=== PATIENT | female | born 1990 | race African-American/Black ===

== ENCOUNTER 2025-05-05 11:46 | Emergency (ER) | payer MEDICARE ==
[~2025-05-05] VITALS: Ht 165.1 cm; Wt 80.8 kg
[2025-05-05 11:50] VITALS: PULSE 105; RESP 16; TEMP 99; O2SAT 98
[2025-05-05] MEDS ORDERED: HYDROMORPHONE 1MG/1ML INJ IV STA (12:33)
[2025-05-05] MEDS: Morphine 4mg INJECTION 4 MG/ML INJ IV ONE ×2 (13:07→14:02)
[2025-05-05] MEDS: ONDANSETRON HCL INJ 2MG/ML 2ML 2 MG/ML VIAL IV STA (13:07)
== END 2025-05-05 14:40 | disposition home or self-care (01) ==
LOC: FSED 11:51
DX: M54.50 Low back pain, unspecified (principal); N20.0 Calculus of kidney; I10 Essential (primary) hypertension; F17.210 Nicotine dependence, cigarettes, uncomplicated
CPT/HCPCS: 74176; 80053; 81003; 81025; 85025; 99283; J1171; J2270; J2405

== ENCOUNTER 2025-05-08 13:17 | Emergency (ER) | payer MEDICARE ==
[2025-05-08] MEDS: ONDANSETRON HCL 4 MG ORAL DISINTEGRATING TAB PO ONE (13:56)
[2025-05-08] MEDS: Morphine 4mg INJECTION 4 MG/ML INJ IM ONE (13:59)
[2025-05-08 15:08] VITALS: PULSE 76; RESP 20; TEMP 98.9; O2SAT 100
[2025-05-08] MEDS ORDERED: ULTRAM 50MG50 MG PO (15:10)
[2025-05-08] MEDS ORDERED: FLOMAX0.4 MG PO (15:11)
[2025-05-08] MEDS ORDERED: ONDANSETRON ODT4 MG PO (15:12)
== END 2025-05-08 15:17 | disposition home or self-care (01) ==
LOC: FSED 13:33
DX: R31.9 Hematuria, unspecified (principal); N20.0 Calculus of kidney; M54.50 Low back pain, unspecified; R10.9 Unspecified abdominal pain; I10 Essential (primary) hypertension
CPT/HCPCS: 81003; 99284; J2270; Q0162

== ENCOUNTER 2025-06-12 19:48 | Emergency (ER) | payer MEDICARE ==
[~2025-06-12] VITALS: Ht 162.6 cm; Wt 77.6 kg
[~2025-06-12 19:48] MED LIST: FLOMAX0.4 MG PO; ONDANSETRON ODT4 MG PO; ULTRAM 50MG50 MG PO
[2025-06-12] MEDS ORDERED: TYLENOL325 MG PO (20:42)
[2025-06-12] MEDS ORDERED: IBUPROFEN600 MG PO (20:42)
[2025-06-12] MEDS: ACETAMINOPHEN 325 MG TAB PO ONE (21:53)
[2025-06-12 22:48] VITALS: PULSE 95; RESP 15; TEMP 98.9
[2025-06-12 22:50] VITALS: BP 137/86; PULSE 95; RESP 15; TEMP 99; O2SAT 99
== END 2025-06-12 22:54 | disposition home or self-care (01) ==
LOC: FSED 20:16
DX: S00.83XA Contusion of other part of head, initial encounter (principal); S60.222A Contusion of left hand, initial encounter; S60.221A Contusion of right hand, initial encounter; R51.9 Headache, unspecified; Y04.0XXA Assault by unarmed brawl or fight, initial encounter; Y92.89 Other specified places as the place of occurrence of the external cause; I10 Essential (primary) hypertension; J45.909 Unspecified asthma, uncomplicated; F17.210 Nicotine dependence, cigarettes, uncomplicated
CPT/HCPCS: 70450; 72125; 81025; 99284

== ENCOUNTER 2025-06-13 18:31 | Observation (INO) | payer MEDICARE, OTHER ==
[~2025-06-13] VITALS: Ht 162.6 cm; Wt 77.6 kg
[~2025-06-13 18:31] MED LIST changes: +IBUPROFEN600 MG PO; +TYLENOL325 MG PO
[2025-06-13 19:00] VITALS: RESP 16; TEMP 98.8
[2025-06-13] MEDS ORDERED: SODIUM CHLORIDE 0.9% 1000ML 1,000 ML IV STA (19:38)
[2025-06-13 20:00] VITALS: BP 135/95; PULSE 85; TEMP 97.5; O2SAT 100
[2025-06-13 20:43] LABS: PREGNANCY TEST, URINE NEGATIVE (NEGATIVE)
[2025-06-13 20:45] LABS: AMPHETAMINES SCREEN,URINE POSITIVE (NEGATIVE); COCAINE SCREEN,URINE NEGATIVE (NEGATIVE); OPIATES SCREEN,URINE NEGATIVE (NEGATIVE)
[2025-06-13 20:46] LABS: CANNABINOIDS SCREEN,URINE NEGATIVE (NEGATIVE); METHADONE SCREEN, URINE NEGATIVE (NEGATIVE)
[2025-06-13] MEDS ORDERED: KETOROLAC TROMETHAMINE 30 MG/ML VIAL ONE (20:48)
[2025-06-13] MEDS: KETOROLAC TROMETHAMINE 30 MG/ML VIAL IV STA (20:53)
[2025-06-13] MEDS: SODIUM CHLORIDE 0.9% 1000ML 1,000 ML IV SCH (20:53)
[2025-06-13 21:00] VITALS: PULSE 72
[2025-06-13 22:00] VITALS: BP 138/97; PULSE 85; RESP 18; TEMP 97.5; O2SAT 100
[2025-06-13 23:30] VITALS: BP 131/90; PULSE 81; RESP 18; TEMP 97.2; O2SAT 100
[2025-06-13] MEDS ORDERED: CELECOXIB 100 MG CAP PO PRN (23:30)
[2025-06-13] MEDS ORDERED: ONDANSETRON HCL INJ 2MG/ML 2ML 2 MG/ML VIAL IV PRN (23:30)
[2025-06-14] VITALS (7 sets, daily range): BP systolic 127–138; BP diastolic 81–96; PULSE 77–92; RESP 16–18; TEMP 97.7–98.6; O2SAT 89–100
[2025-06-14] MEDS: KETOROLAC TROMETHAMINE 30 MG/ML VIAL IV PRN (06:06)
[2025-06-14] MEDS: PANTOPRAZOLE SOD 40 MG TABEC PO SCH (08:13)
[2025-06-15 00:45] VITALS: BP 115/83; PULSE 84; RESP 18; TEMP 98.3; O2SAT 100
[2025-06-15 03:37] VITALS: BP 114/69; PULSE 92; RESP 18; TEMP 98.1; O2SAT 100
[2025-06-15] MEDS: ACETAMINOPHEN 325 MG TAB PO PRN (05:14)
[2025-06-15 08:18] VITALS: BP 128/85; PULSE 80; RESP 20; TEMP 98.2; O2SAT 100
[2025-06-15 10:18] VITALS: BP 128/85; PULSE 80; RESP 20; TEMP 98.2; O2SAT 100
[2025-06-15 11:16] VITALS: BP 133/92; PULSE 83; RESP 19; TEMP 97.9; O2SAT 97
== END 2025-06-15 15:45 | disposition home or self-care (01) ==
LOC: ER 18:59 → ERHOLD 20:24 → MED/SURG 21:48
PROVIDERS: ADMIT Internal Medicine; ATTEND Internal Medicine
DX: R42 Dizziness and giddiness (principal); R51.9 Headache, unspecified; Y04.2XXA Assault by strike against or bumped into by another person, initial encounter; Y92.9 Unspecified place or not applicable; Y04.8XXA Assault by other bodily force, initial encounter; F19.10 Other psychoactive substance abuse, uncomplicated; Z59.00 Homelessness unspecified; I10 Essential (primary) hypertension; J45.909 Unspecified asthma, uncomplicated
CPT/HCPCS: 70450; 71045; 72125; 80307; 81025; 93005; 99252; 99284; G0378 ×3; J1885 ×3; J2470 ×2; J7030 ×3